=== PATIENT | male | born 1970 | race Caucasian/White ===

== ENCOUNTER 2018-08-30 18:01 | Outpatient (REF) | payer OTHER, SELFPAY ==
[2018-08-30 20:43] LABS: ALT 45 U/L (12-78); AST 25 U/L (15-37); Albumin 4.1 g/dL (3.4-5.0); Alkaline Phosphatase 90 U/L (46-116); Anion Gap 8.6 mmol/L (3-11); BUN 16 mg/dL (7-18); Bilirubin, Total 0.5 mg/dL (0.2-1.0); CO2 29.4 mmol/L (21.0-32.0); CREATININE 0.96 mg/dL (0.70-1.30); Calcium 9.2 mg/dL (8.5-10.1); Chloride 102 mmol/L (98-107); Creatine Kinase 119 U/L (39-308); Glucose 99 mg/dL (70-100); Potassium 5.2 mmol/L (3.5-5.1); Sodium 140 mmol/L (136-145)
== END 2018-08-30 18:21 ==
LOC: NCHCN 18:01
PROVIDERS: PCP Specialist/Technologist Athletic Trainer; Visit Provider Specialist/Technologist Athletic Trainer
DX: Z51.81 Encounter for therapeutic drug level monitoring (principal)
CPT/HCPCS: 80053; 82550

== ENCOUNTER 2019-05-24 16:05 | Outpatient (REF) | payer OTHER, SELFPAY ==
[2019-05-24 22:20] LABS: ALT 31 U/L (12-78); AST 28 U/L (15-37); Albumin 4.2 g/dL (3.4-5.0); Alkaline Phosphatase 93 U/L (46-116); Anion Gap 11.4 mmol/L (3-11); BUN 12 mg/dL (7-18); Bilirubin, Total 0.4 mg/dL (0.2-1.0); CO2 24.6 mmol/L (21.0-32.0); CREATININE 0.85 mg/dL (0.70-1.30); Calculated LDL 91 mg/dL; Chloride 104 mmol/L (98-107); Cholesterol 185 mg/dL (50-200); Glucose 81 mg/dL (70-100); HDL Cholesterol 43 mg/dL (40-60); Potassium 4.5 mmol/L (3.5-5.1); Sodium 140 mmol/L (136-145); Total Protein 8.2 g/dL (6.4-8.2); Triglyceride 257 mg/dL (30-150)
== END 2019-05-24 16:25 ==
LOC: NCHCN 16:05
PROVIDERS: PCP Specialist/Technologist Athletic Trainer; Visit Provider Specialist/Technologist Athletic Trainer
DX: Z00.00 Encounter for general adult medical examination without abnormal findings (principal); Z13.220 Encounter for screening for lipoid disorders; Z13.228 Encounter for screening for other metabolic disorders
CPT/HCPCS: 80053; 80061; 83721

== ENCOUNTER 2020-06-13 22:21 | Outpatient (REF) | payer OTHER, SELFPAY ==
[2020-06-13 22:52] LABS: ALT 28 U/L (16-63); AST 21 U/L (15-37); Albumin 4.3 g/dL (3.4-5.0); Alkaline Phosphatase 70 U/L (46-116); Anion Gap 11.7 mmol/L (3-11); BUN 23 mg/dL (7-18); Bilirubin, Total 0.5 mg/dL (0.2-1.0); CO2 23.3 mmol/L (21.0-32.0); CREATININE 0.95 mg/dL (0.70-1.30); Calcium 9.1 mg/dL (8.5-10.1); Calculated LDL 141 mg/dL (<100); Chloride 102 mmol/L (98-107); Cholesterol 211 mg/dL (<200); Glucose 96 mg/dL (74-106); HDL Cholesterol 48 mg/dL (40-60); Potassium 4.3 mmol/L (3.5-5.1); Sodium 137 mmol/L (136-145); Triglyceride 112 mg/dL (<150)
[2020-06-16 09:45] LABS: PSA, Screening 0.7 ng/mL (0.0-3.5)
== END 2020-06-13 22:41 ==
LOC: NCHCN 22:21
PROVIDERS: PCP Specialist/Technologist Athletic Trainer; Visit Provider Physician Assistant
DX: E78.5 Hyperlipidemia, unspecified (principal); Z00.00 Encounter for general adult medical examination without abnormal findings
CPT/HCPCS: 80053; 80061; 84153

== ENCOUNTER 2020-10-22 14:38 | Outpatient (REF) | payer OTHER, SELFPAY ==
[2020-10-26 07:30] LABS: Patient Race White; SARS-CoV-2 RNA Undetected (Undetected); SARS-CoV-2 Specimen Source Nasal
== END 2020-10-22 14:58 ==
LOC: NCHCN 14:38
PROVIDERS: PCP Specialist/Technologist Athletic Trainer; Visit Provider Physician Assistant
DX: Z11.59 Encounter for screening for other viral diseases (principal)
CPT/HCPCS: U0003

== ENCOUNTER 2021-06-08 13:09 | Outpatient (REF) | payer OTHER, SELFPAY ==
[2021-06-08 16:06] LABS: Cholesterol 292 mg/dL (<200); HDL Cholesterol 40 mg/dL (40-60); Triglyceride 603 mg/dL (<150)
[2021-06-08 16:29] LABS: LDL CHOLESTEROL 108 mg/dL (<100)
[2021-06-08 22:15] LABS: PSA, Screening 0.9 ng/mL (0.0-3.5)
== END 2021-06-08 13:10 | disposition home or self-care (01) ==
LOC: NCHCN 13:09
PROVIDERS: PCP Specialist/Technologist Athletic Trainer; Visit Provider Physician Assistant
DX: Z00.00 Encounter for general adult medical examination without abnormal findings (principal); E78.5 Hyperlipidemia, unspecified
CPT/HCPCS: 80061; 83721; 84153

== ENCOUNTER 2022-06-25 17:48 | Outpatient (REF) | payer OTHER, SELFPAY ==
--- NOTE | 2022-06-25 16:45 | SKI_PTH ---
PATIENT: Kranthi Palacios LOC: [facility] U#:[id number] AGE/SX: 51/M ROOM: RE06/25/[address]: Ketan Wolf : 1970 BED: DIS: 06/25/2022 SPEC #: [id number] RECD: 06/25/22 18:19 STATUS: ROSI REInna #: [id number] VASHTI: 06/25/22 16:[address]: Ketan Wolf DEPT: Surgical Specimen RECD BY: Rose Irvin Tissues: 1 - SKIN BIOPSY(SHAVE/PUNCH) Procedures: SKIN LEVEL 4 Comments: [id number]
== END 2022-06-25 17:49 | disposition home or self-care (01) ==
LOC: NCHCN 17:48
PROVIDERS: Visit Provider Physician Assistant
DX: D22.5 Melanocytic nevi of trunk (principal)
CPT/HCPCS: 88305

== ENCOUNTER 2022-09-16 11:17 | Outpatient (REF) | payer OTHER, SELFPAY ==
[2022-09-16 15:58] LABS: ALT 51 U/L (16-63); AST 30 U/L (15-37); Albumin 4.2 g/dL (3.4-5.0); Alkaline Phosphatase 104 U/L (46-116); Anion Gap 9.8 mmol/L (3-11); BUN 17 mg/dL (7-18); Bilirubin, Total 0.3 mg/dL (0.2-1.0); CO2 26.2 mmol/L (21.0-32.0); CREATININE 0.9 mg/dL (0.70-1.30); Calcium 9.6 mg/dL (8.5-10.1); Calculated LDL 134 mg/dL (<100); Chloride 103 mmol/L (98-107); Cholesterol 210 mg/dL (<200); Estimated GFR 102.12 (mL/min/1.73m2); Glucose 97 mg/dL (74-106); HDL Cholesterol 52 mg/dL (40-60); Potassium 4.9 mmol/L (3.5-5.1); Sodium 139 mmol/L (136-145); Total Protein 8.7 g/dL (6.4-8.2); Triglyceride 124 mg/dL (<150)
== END 2022-09-16 11:18 | disposition home or self-care (01) ==
LOC: NCHCN 11:17
PROVIDERS: Visit Provider Physician Assistant
DX: E78.5 Hyperlipidemia, unspecified (principal); Z12.5 Encounter for screening for malignant neoplasm of prostate
CPT/HCPCS: 80053; 80061; 84153

== ENCOUNTER 2023-08-26 10:30 | Outpatient (REF) | payer OTHER, SELFPAY ==
[2023-08-26 15:10] LABS: ALT 37 U/L (16-63); AST 23 U/L (15-37); Albumin 4.2 g/dL (3.4-5.0); Alkaline Phosphatase 90 U/L (46-116); Anion Gap 9.2 mmol/L (3-11); BUN 15 mg/dL (7-18); Bilirubin, Total 0.7 mg/dL (0.2-1.0); CO2 25.8 mmol/L (21.0-32.0); CREATININE 1.1 mg/dL (0.70-1.30); Calcium 9.2 mg/dL (8.5-10.1); Calculated LDL 101 mg/dL (<100); Chloride 102 mmol/L (98-107); Cholesterol 191 mg/dL (<200); Estimated GFR 80.27 (mL/min/1.73m2); Glucose 101 mg/dL (74-106); HDL Cholesterol 52 mg/dL (40-60); Potassium 4.3 mmol/L (3.5-5.1); Sodium 137 mmol/L (136-145); Total Protein 8.1 g/dL (6.4-8.2); Triglyceride 194 mg/dL (<150)
[2023-08-26 22:50] LABS: PSA, Screening 1.1 ng/mL (<=3.5)
== END 2023-08-26 10:31 | disposition home or self-care (01) ==
LOC: NCHCN 10:30
PROVIDERS: PCP Physician Assistant; Visit Provider Physician Assistant
DX: E78.5 Hyperlipidemia, unspecified (principal); Z12.5 Encounter for screening for malignant neoplasm of prostate
CPT/HCPCS: 80053; 80061; 84153

== ENCOUNTER 2024-07-02 18:41 | Outpatient (REF) | payer OTHER, SELFPAY ==
[2024-07-02 17:28] LABS: ALT 36 U/L (16-63); AST 23 U/L (15-37); Albumin 4.5 g/dL (3.4-5.0); Alkaline Phosphatase 90 U/L (46-116); Anion Gap 13.7 mmol/L (3-11); BUN 12 mg/dL (7-18); Bilirubin, Total 0.74 mg/dL (0.2-1.0); CO2 23.3 mmol/L (21.0-32.0); CREATININE 0.9 mg/dL (0.70-1.30); Calculated LDL 98 mg/dL (<100); Chloride 101 mmol/L (98-107); Cholesterol 192 mg/dL (<200); Estimated GFR 101.49 (mL/min/1.73m2); Glucose 100 mg/dL (74-106); HDL Cholesterol 52 mg/dL (40-60); Potassium 3.9 mmol/L (3.5-5.1); Sodium 138 mmol/L (136-145); Triglyceride 212 mg/dL (<150)
--- OUTSIDE RECORDS SUMMARY | 2024-07-02 18:43 | XMS_ITS | Encounter Summary ---
Author Organization [facility] Address [address] [place] [address] Care Team Providers Care Hide Dyer Name Role Phone Unknown, Provider Primary Care Provider [phone] Encounter Details Date Type Department Care Team (Late st Contact Info) Description 07/12/2014 Results Only [facility] [phone] Eder Fairchild, DO [address] [place] [address] Social History Tobacco Use Types Packs/Day Years Used Date Smoking Tobacco: Never Assessed Sex and Gender Information Value Date Recorded Sex Assigned at Not on file Gender Identity Not on file Sexual Orientation Not on file documented as of this encounter Plan of Treatment Not on file documented as of this encounter Procedures Procedure Name Priority Date/Time Associated Diagnosis Comments SURGICAL PATHOLOGY Routine 07/12/2014 19 :29 EDT documented in this encounter Results * SURGICAL PATHOLOGY (07/12/2014 19:29 EDT) Pathology Report: SURGICAL PATHOLOGY REPORT Reports generated via electronic interface contain original data; however they are lacking the format of the original report. Caution should be taken when reading/interpreti ng unformatted reports. Name: ? HILARIO RICHY ? Accession #: ? [id number] ? : ? 1970 (Age: 43) ??M ? Collect Date: ? 07/12/2014 ? Location: ? [facility] ? Receive Date: ? 07/12/2014 ? Provider: EDER FAIRCHILD DO Copy to: LINH SHANNON PAC ? Final Pathologic Diagnosis: A. COLON, HEPATIC FLEXURE, POLYP, BIOPSY: - ??Fragments of sessile serrated adenoma. B. COLON, SIGMOID, POLYP, BIOPSY: - ??Fragments of hyperplastic polyp. C. COLON, DISTAL SIGMOID, POLYP, BIOPSY: - ??Fragment of hyperplastic/infla mmatory polyp. Document reviewed and electronically signed by: GETACHEW DOE MD Report ??Date: 07/15/2014 20:21 By the signature above, the attending physician certifies that he/she has personally conducted a gross and/or microscopic examination of the described specimens and rendered or confirmed the above diagnosis. Specimen(s) Received: A. ??Colon polyp hepatic flexure (#1) B. ??Sigmoid polyp (#2) C. ??Distal sigmoid polyp (#3) Clinical History: Rectal bleeding, screening Gross Description: A. ?Received in formalin labelled with proper patient identification (initials B, B) and 1. colon polyp hepatic flexure are two pink-arechiga tissues (0.3 x 0.2 x 0.1 cm and 0.3 x 0.1 x 0.1 cm). Entirely submitted in A1. B. ?Received in formalin labelled with proper patient identification (initials B, B) and #2. sigmoid polyp is a single pink-arechiga tissue fragment (0.4 x 0.3 x 0.2 cm). Submitted intact in B1. C. ?Received in formalin labelled with proper patient identification (initials B, B) and #3. distal sigmoid polyp is a single pink-arechiga tissue fragment (0.1 x 0.1 x 0.1 cm). Submitted intact in C1. Dr. Moreno 07/13/2014 10:01 AM End of Report [facility] 07/12/2014 19:2 9 EDT 07/12/2014 19:29 EDT Eder Fairchild DO PATHOLOGY ORDERABLES Performing Organization Address City/State/[facility] Co de Phone Number [facility] [address] [place] [address] documented in this encounter Visit Diagnoses Not on filedocumented in this encounter Care Teams Hide Dyer Relationship Specialty Start Date End Date Unknown, Provider, PCP - General 07/12/14 05/25/15 documented as of this encounter
--- OUTSIDE RECORDS SUMMARY | 2024-07-02 18:43 | XMS_ITS | Referral Summary ---
Author Organization [facility] Address [address] [place] [address] Care Team Providers Care Data Lead Name Role Phone Jarrett Correia PA-C Primary Care Provider [phone] Encounters Date Type Department Care Team Description 07/02/2024 Lab Requisition [facility] Pathology & Laboratory Medicine - [facility] [address] [place] [address] Outr Resulting Lab, Provider from Last 3 Months Social History Tobacco Use Types Packs/Day Years Used Date Smoking Tobacco: Never Assessed Sex and Gender Information Value Date Recorded Sex Assigned at Not on file Gender Identity Not on file Sexual Orientation Not on file Plan of Treatment Not on file Care Teams Data Lead Relationship Specialty Start Date End Date Jarrett Correia PA-C PCP - General 05/26/15
--- OUTSIDE RECORDS SUMMARY | 2024-07-02 18:43 | XMS_ITS | Encounter Summary ---
Author Organization [facility] Address [address] [place] [address] Care Team Providers Care Marketing Strategy Lead Name Role Phone Unknown, Provider Primary Care Provider [phone] Encounter Details Date Type Department Care Team (Late st Contact Info) Description 05/21/2015 Results Only [facility] [phone] Linh Shannon PA-C [address] [place] [address] Social History Tobacco Use Types Packs/Day Years Used Date Smoking Tobacco: Never Assessed Sex and Gender Information Value Date Recorded Sex Assigned at Not on file Gender Identity Not on file Sexual Orientation Not on file documented as of this encounter Plan of Treatment Not on file documented as of this encounter Procedures Procedure Name Priority Date/Time Associated Diagnosis Comments SURGICAL PATHOLOGY Routine 05/21/2015 20 :53 EDT documented in this encounter Results * SURGICAL PATHOLOGY (05/21/2015 20:53 EDT) Pathology Report: SURGICAL PATHOLOGY REPORT Reports generated via electronic interface contain original data; however they are lacking the format of the original report. Caution should be taken when reading/interpret ing unformatted reports. Name: ? BONYKEIRY RICHY ? Accession #: ? [id number] ? : ? 1970 (Age: 44) ??M ? Collect Date: ? 05/21/2015 ? Location: ? [facility] ? Receive Date: ? 05/22/2015 ? Provider: LINH SHANNON PAC Copy to: ? Final Pathologic Diagnosis: A. ? SKIN OF BACK, RIGHT UPPER PROXIMAL, ELLIPTICAL EXCISION: ? - Melanocytic nevus, combined type (intradermal and blue). - Lesion extends to peripheral edges of biopsy specimen. - Lesion measures approximately 4.0 mm to the biopsy base. B. ? SKIN OF BACK, RIGHT UPPER DISTAL, ELLIPTICAL EXCISION: ? - Melanocytic nevus, intradermal type. - Lesion extends to peripheral edges of biopsy specimen. - Lesion measures approximately 2.0 mm to the biopsy base. Microscopic Description: (A) ??Within the dermis are two populations of melanocytes. More superficially, there are nests, cords, and strands that diminish in size with descent into the dermis. ??The melanocytes are slightly enlarged but generally have round-oval nuclei and a moderate amount of cytoplasm. ??The melanocytes show etiology teacher maturation. ??The melanocytes show an irregular distribution of melanin pigment. Also present is a second population of more heavily pigmented dendritic melanocytes. ??The proliferation is overall symmetric and somewhat wedge shaped. There is no overt atypia. ? (B) ??Sections are of a papule with mild epidermal hyperplasia and hyperkeratosis. ??There is a proliferation of melanocytes within the dermis. ??The proliferation consists of nests, cords, and strands that diminish in size with descent into the dermis. ??The melanocytes are slightly enlarged but generally have round-oval nuclei and a moderate amount of cytoplasm. ??The melanocytes show etiology teacher maturation. ??(Dr. Tam)/[place] Document reviewed and electronically signed by: SHANNAN TAM MD Report ??Date: 05/26/2015 13:21 By the signature above, the attending physician certifies that he/she has personally conducted a gross and/or microscopic examination of the described specimens and rendered or confirmed the above diagnosis. Specimen(s) Received: A. ?Excision (elliptical) R upper back proximal (#1) B. ? Excision (elliptical) R upper back distal (#2) Clinical History: A. ?Multi-colored nevus w/irregular borders; B. Multi-colored nevus with raised irregular borders Gross Description: A. ?Received in formalin labelled with proper patient identification (initials B, B) and mole proximal right upper back is an unoriented elliptical excision of pink-arechiga hairbearing skin (0.9 x 0.4 cm and is excised to a depth of 0.4 cm). There is a central arechiga-brown well-demarcated macule that measures 0.5 x 0.3 cm. The margins are inked blue. The specimen is serially sectioned and entirely submitted as A1 central sections and A2 tips, reverse en face. B. ?Received in formalin labelled with proper patient identification (initials B, B) and right upper back distal mole is an unoriented elliptical excision of pink-arechiga hairbearing skin (0.9 x 0.4 cm and is excised to a depth of 0.5 cm). There is an eccentric zambrano-brown roughened lesion that measures 0.3 x 0.3 x 0.1 cm. The margins are inked blue. The specimen is serially sectioned and entirely submitted as B1 central sections and B2 tips, reverse en face. Samm Kulkarni 05/23/2015 12:[address] [facility] 05/21/2015 20:5 3 EDT 05/22/2015 20:53 EDT Linh Shannon PA-C PATHOLOGY ORDERAB LES [facility] [address] [place] [address] documented in this encounter Visit Diagnoses Not on filedocumented in this encounter Care Teams Marketing Strategy Lead Relationship Specialty Start Date End Date Unknown, Provider, PCP - General 07/12/14 05/25/15 documented as of this encounter
--- OUTSIDE RECORDS SUMMARY | 2024-07-02 18:43 | XMS_ITS | Encounter Summary ---
Author Organization [facility] Address [address] [place] [address] Care Team Providers Care Plastic Products Sales Representative Name Role Phone Jarrett Correia PA-C Primary Care Provider [phone] Encounter Details Date Type Department Care Team (Late st Contact Info) Description 06/14/2020 Lab Requisition [facility] Pathology & Laboratory Medicine - [facility] [address] [place], [place] [id number] Outr Resulting Lab, Provider Social History Tobacco Use Types Packs/Day Years Used Date Smoking Tobacco: Never Assessed Sex and Gender Information Value Date Recorded Sex Assigned at Not on file Gender Identity Not on file Sexual Orientation Not on file documented as of this encounter Plan of Treatment Not on file documented as of this encounter Procedures Procedure Name Priority Date/Time Associated Diagnosis Comments PSA TOTAL, DIAGNOSTIC Routine 06/13/2020 7:38 EDT documented in this encounter Results * PSA TOTAL, DIAGNOSTIC (06/13/2020 7:38 EDT) PSA 0.7 0.0 - 3.5 ng/mL 06/16/2020 9:41 EDT [facility] Blood VENOUS BLOOD / Unknown 06/13/2020 7:38 EDT 06/15/2020 19:39 EDT Narrative [facility] - 06/16/2020 9:41 EDT NOTE: Serum PSA concentration should not be interpreted as absolute evidence for the presence or absence of malignant disease. Assayed on Siemens ADVIA Centaur XPT using chemiluminescent technology.??Values obtained by using different assay methods cannot be used interchangeably. Provider Outr Resulting Lab CHEMISTRY & BLOOD GAS ORDERABLES [facility] [address] [place] [address] documented in this encounter Visit Diagnoses Not on filedocumented in this encounter Care Teams Plastic Products Sales Representative Relationship Specialty Start Date End Date Jarrett Correia PA-C PCP - General 05/26/15 documented as of this encounter
--- OUTSIDE RECORDS SUMMARY | 2024-07-02 18:43 | XMS_ITS | Encounter Summary ---
Author [facility] [place] [address] Care Team Providers Care Scalp Treatment Operator Name Role Phone Jarrett Correia Primary Care Provider [phone] Reason for Visit * Reason Comments Skin Check Encounter Details Date Type Department Care Team (Late st Contact Info) Description 08/29/2014 9:45 AM EDT Office Visit Dermatology at [address] [address] Pedrito Martinez MD [address] [facility] [place] [address] Allergic contact dermatitis (Primary Dx) Discharge Disposition: Home Social History Tobacco Use Types Packs/Day Years Used Date Smoking Tobacco: Never Sex and Gender Information Value Date Recorded Sex Assigned at Not on file Gender Identity Not on file Sexual Orientation Not on file documented as of this encounter Progress Notes * Pedrito Martinez MD - 08/29/2014 10:08 AM EDT Problem: Foot dermatitis. Violet is a 43-year-old gentleman who for at least six years has had problems with foot dermatitis. It seems to be worse in the summer months and improves in the winter months. It is quite itchy and develops on the lateral aspects of his feet and dorsal toes, not in the toe web spaces, and often there are microvesicles and some serous oozing associated with this. He has a history of childhood eczema but has had no issues with that in the antecubital fossae for many years. 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 He uses the betamethasone valerate 0.05% ointment b.i.d. p.r.n. His only other medication is Zyrtec 10 mg once daily. He does wear leather boots with Kevlar toes at work and has always worn different varieties of these ankle-high boots. The rash never goes above his ankle. He has worn Krebs, Macdoel, and various different manufacturers over the last six years and has had problems with most of them. Physical examination reveals a pleasant 43-year-old gentleman who has patchy dermatitis over the bony prominences on the left lateral foot, also along the lower side of the left foot to distribute over the dorsal toes. It does not extend down into the toe web spaces or onto the sole of the foot. He has some patchy lichenification over the dorsal right toe. Assessment and Plan: Spongiotic dermatitis with intermittent flaring, suspect allergic contact dermatitis to his shoes. a. Recommend that the patient be seen for patch testing by [place]. [place] [facility] Discussed my suspected diagnosis, and the patient understands the rationale for patch testing and the need for three visits. b. May continue for now betamethasone valerate ointment, applying q.day b.i.d. as needed for itching. Currently his dermatitis is actually looking very good he states. c. Discussed how the potential allergen may be shared between different brands of shoes and so he should not buy a new pair to replace them and expect resolution. d. Further explained that his current work position at [employer] is not the likely source of his dermatitis and I do not think anything in his work as an dredge boat engineer there is specifically triggering his dermatitis. We will refer to Dr. Friend to rule out allergic contact shoe dermatitis. COPY: Jarrett Correia P.A.-C. documented in this encounter Plan of Treatment Not on file documented as of this encounter Visit Diagnoses Diagnosis Allergic contact dermatitis- Primary Contact dermatitis and other eczema, due to unspecified cause documented in this encounter Care Teams Scalp Treatment Operator Relationship Specialty Start Date End Date Jarrett Correia PA [address] [place] [address] PCP - General 05/03/14 06/01/21 documented as of this encounter
--- OUTSIDE RECORDS SUMMARY | 2024-07-02 18:43 | XMS_ITS | Encounter Summary ---
Author Organization [facility] Address [address] [place] [address] Care Team Providers Care Director Decision Support Name Role Phone Jarrett Correia PA-C Primary Care Provider [phone] Encounter Details Date Type Department Care Team (Late st Contact Info) Description 06/26/2022 Lab Requisition [facility] Pathology & Laboratory Medicine - [facility] [address] [place] [address] Ketan Wolf, [facility] [address] [place] [address] [place] [address] Encounter for other general examination Social History Tobacco Use Types Packs/Day Years Used Date Smoking Tobacco: Never Assessed Sex and Gender Information Value Date Recorded Sex Assigned at Not on file Gender Identity Not on file Sexual Orientation Not on file documented as of this encounter Plan of Treatment Not on file documented as of this encounter Procedures Procedure Name Priority Date/Time Associated Diagnosis Comments SURGICAL PATHOLOGY Today 06/25/2022 16 :45 EDT Encounter for other general examination documented in this encounter Results * SURGICAL PATHOLOGY (06/25/2022 16:45 EDT) Note to Patient The following pathology results have been interpreted by your pathologist and may be available to you before your health provider has had the opportunity to review them. Please allow time for your provider to receive these results and explore management options, if applicable. 06/28/2022 14:02 EDT [facility] Final Diagnosis A. SKIN OF ABDOMEN, RIGHT LOWER, SHAVE BIOPSY: - Melanocytic nevus, compound type, with unusual architectural features and mild cytologic atypia. - Nevus present at peripheral and deep tissue edges. 06/28/2022 14:02 [facility] Attestation By the signature below, the attending physician certifies that they have 1) personally conducted a gross and/or microscopic examination of the described specimen(s), and/or personally interpreted the results of laboratory testing of the described specimen(s), and 2) personally rendered or confirmed the above diagnosis. 06/28/2022 14:02 [facility] at 1402 Microscopic Description Sections consist of a fragmented portion of skin to the superficial reticular dermis. There is an ill-defined melanocytic proliferation. The junctional component consists of nests that vary and size and spacing. Individual melanocytes are minimally increased in density and show no tendency toward confluence. The melanocytes are slightly enlarged. There is a patchy dermal component consisting of nests of similar melanocytes. 06/28/2022 14:02 [facility] Clinical History 5 mm flat nevus on right lower abdomen with irregular borders and color variation 06/28/2022 14:02 [facility] Gross Description A. Received in formalin labelled with proper patient identification (initials B, B) and nevus on right lower abdomen is a shave biopsy of white skin (0.4 x 0.4 x 0.1 cm) with an eccentric, irregular brown macule (0.4 x 0.3 x 0.1 cm). The specimen is inked, bisected, and submitted in A1. MACRY QUIÑONES(ASCP) 06/28/2022 6:13 06/28/2022 14:02 T [facility] Performing Lab [facility] 06/28/2022 14:02 [facility] Scanned Images 06/28/2022 14:02 [facility] Tissue TISSUE SPECIMEN FROM SKIN / Unknown 06/25/2022 16:45 EDT 06/26/2022 9:56 EDT Ketan Wolf [facility] PATHOLOGY ORDERAB LES [facility] [address] [place] [address] documented in this encounter Visit Diagnoses Diagnosis Encounter for other general examination documented in this encounter Care Teams Director Decision Support Relationship Specialty Start Date End Date Jarrett Correia PA-C PCP - General 05/26/15 documented as of this encounter
--- OUTSIDE RECORDS SUMMARY | 2024-07-02 18:43 | XMS_ITS | Encounter Summary ---
Author Organization [facility] Address [address] [place] [address] Care Team Providers Care Food And Beverage Assistant Name Role Phone Jarrett Correia PA-C Primary Care Provider [phone] Encounter Details Date Type Department Care Team (Late st Contact Info) Description 08/26/2023 Lab Requisition [facility] Pathology & Laboratory Medicine - [facility] [address] [place], [place] [id number] Outr Resulting Lab, Provider Social History Tobacco [...] Associated Diagnosis Comments PSA TOTAL, DIAGNOSTIC Routine 08/26/2023 7:35 EDT documented in this encounter Results * PSA TOTAL, DIAGNOSTIC (08/26/2023 7:35 EDT) PSA 1.1 <=3.5 ng/mL 08/26/2023 22:45 EDT [facility] Blood VENOUS BLOOD / Unknown 08/26/2023 7:35 EDT 08/26/2023 21:24 EDT Narrative [facility] - 08/26/2023 22:45 EDT NOTE: Serum PSA concentration should not be interpreted as absolute evidence for the presence or absence of malignant disease. Assayed on Siemens ADVIA Platedaur XPT using chemiluminescent technology.??Values obtained by using different assay methods cannot be used interchangeably. Provider Outr Resulting Lab CHEMISTRY & BLOOD GAS ORDERABLES [facility] [address] [place] [address] documented in this encounter Visit Diagnoses Not on filedocumented in this encounter Care Teams Food And Beverage Assistant Relationship Specialty Start Date End Date Jarrett Correia PA-C PCP - General 05/26/15 documented as of this encounter
--- OUTSIDE RECORDS SUMMARY | 2024-07-02 18:43 | XMS_ITS | Encounter Summary ---
Author Organization [facility] Address [address] [place] [address] Care Team Providers Care Tipple Operator Name Role Phone Jarrett Correia PA-C Primary Care Provider [phone] Encounter Details Date Type Department Care Team (Late st Contact Info) Description 09/16/2022 Lab Requisition [facility] Pathology & Laboratory Medicine - [facility] [address] [place], [place] [id number] Outr Resulting Lab, Provider Social History Tobacco [...] Associated Diagnosis Comments PSA TOTAL, DIAGNOSTIC Routine 09/16/2022 8:40 EDT documented in this encounter Results * PSA TOTAL, DIAGNOSTIC (09/16/2022 8:40 EDT) PSA 3.0 <=3.5 ng/mL 09/17/2022 13:45 EDT [facility] Blood VENOUS BLOOD / Unknown 09/16/2022 8:40 EDT 09/16/2022 21:34 EDT Narrative [facility] - 09/17/2022 13:45 EDT NOTE: Serum PSA concentration should not be interpreted as absolute evidence for the presence or absence of malignant disease. Assayed on Siemens ADVIA Centaur XPT using chemiluminescent technology.??Values obtained by using different assay methods cannot be used interchangeably. Provider Outr Resulting Lab CHEMISTRY & BLOOD GAS ORDERABLES [facility] [address] [place] [address] documented in this encounter Visit Diagnoses Not on filedocumented in this encounter Care Teams Tipple Operator Relationship Specialty Start Date End Date Jarrett Correia PA-C PCP - General 05/26/15 documented as of this encounter
--- OUTSIDE RECORDS SUMMARY | 2024-07-02 18:43 | XMS_ITS | Encounter Summary ---
Author Organization [facility] Address [address] [place] [address] Care Team Providers Care Flipping Machine Operator Name Role Phone Unknown, Provider Primary Care Provider Encounter Details Date Type Department Care Team (Latest Contact Info) Description 05/21/2015 15:14 EDT - 05/21/2015 23:59 EDT Hospital Encounter [address] [id number] Unknown, Provider, Discharge Disposition: Home or Self Care Social History Tobacco Use Types Packs/Day Years Used Date Smoking Tobacco: Never Assessed Sex and Gender Information Value Date Recorded Sex Assigned at Not on file Gender Identity Not on file Sexual Orientation Not on file documented as of this encounter Discharge Disposition Disposition Code Departure Means Destination Home or Self Custodial documented in this encounter Plan of Treatment Not on file documented as of this encounter Visit Diagnoses Not on filedocumented in this encounter Care Teams Flipping Machine Operator Relationship Specialty Start Date End Date Unknown, Provider, PCP - General 07/12/14 05/25/15 documented as of this encounter
--- OUTSIDE RECORDS SUMMARY | 2024-07-02 18:43 | XMS_ITS | Encounter Summary ---
Author Organization [facility] Address [address] [place] [address] Care Team Providers Care Railroad Police Officer Name Role Phone Jarrett Correia PA-C Primary Care Provider [phone] Encounter Details Date Type Department Care Team (Late st Contact Info) Description 06/08/2021 Lab Requisition [facility] Pathology & Laboratory Medicine - [facility] [address], [place] [id number] Outr Resulting Lab, Provider Social History Tobacco [...] Associated Diagnosis Comments PSA TOTAL, DIAGNOSTIC Routine 06/08/2021 10:05 EDT documented in this encounter Results * PSA TOTAL, DIAGNOSTIC (06/08/2021 10:05 EDT) PSA 0.9 0.0 - 3.5 ng/mL 06/08/2021 22:10 EDT [facility] Blood VENOUS BLOOD / Unknown 06/08/2021 10:05 EDT 06/08/2021 20:51 EDT Narrative [facility] - 06/08/2021 22:10 EDT NOTE: Serum PSA concentration should not be interpreted as absolute evidence for the presence or absence of malignant disease. Assayed on Siemens [employer] XPT using chemiluminescent technology.??Values obtained by using different assay methods cannot be used interchangeably. Provider Outr Resulting Lab CHEMISTRY & BLOOD GAS ORDERABLES [facility] [address] [place] [address] documented in this encounter Visit Diagnoses Not on filedocumented in this encounter Care Teams [employer] Police Officer Relationship Specialty Start Date End Date Jarrett Correia PA-C PCP - General 05/26/15 documented as of this encounter
--- OUTSIDE RECORDS SUMMARY | 2024-07-02 18:43 | XMS_ITS | Clinical Summary ---
[place] [address] Care Team Providers Care Patient Services Clerk Name Role Phone Unknown Primary Care Provider Unavailabl e Allergies No known active allergies Medications Medication Sig Dispensed Refills Start Date End Date Status betamethasone dipropionate (DIPROLENE) 0.05 % Cream Apply topically 2 times daily. Active Active Problems Problem Noted Date Diagnosed Date Allergic contact dermatitis 08/29/2014 Social History Tobacco Use Types Packs/Day Years Used Date Smoking Tobacco: Never Sex and Gender Information Value Date Recorded Sex Assigned at Not on file Gender Identity Not on file Sexual Orientation Not on file Plan of Treatment Health Maintenance Due Date Last Done Comments CT Colonography 1969 Colonoscopy 1969 Colorectal Cancer Screening 1969 FIT DNA 1969 FIT 1969 Sigmoidoscopy (10 year) with FIT yearly 1969 Sigmoidoscopy 1969 HIV screen 1987 Hepatitis C Screening 1987 Lipid Screening 1987 Hepatitis B vaccine (0-59 yrs) (1) 1988 Tdap adult 1988 Tetanus vaccine 1988 Zoster vaccine (1 of 2) 2019 Covid-19 Vaccine (1 - 2022-24 season) 2023 Influenza (Flu) vaccine (1 o f 1 - Influenza standard series) 07/29/2024 Care Teams Patient Services Clerk Relationship Specialty Start Date End Date Unknown None PCP - General 06/02/21
--- OUTSIDE RECORDS SUMMARY | 2024-07-02 18:43 | XMS_ITS | Encounter Summary ---
Author Organization [facility] Address [address] [place] [address] Care Team Providers Care Sales Superintendent Name Role Phone Unknown, Provider Primary Care Provider [phone] Encounter Details Date Type Department Care Team (Latest Contact Info) Description 07/12/2014 6:36 EDT - 07/12/2014 23:59 EDT Hospital Encounter [address] [address] Unknown, Provider, Discharge Disposition: Home or Self Care Social History Tobacco Use Types Packs/Day Years Used Date Smoking Tobacco: Never Assessed Sex and Gender Information Value Date Recorded Sex Assigned at Not on file Gender Identity Not on file Sexual Orientation Not on file documented as of this encounter Discharge Disposition Disposition Code Departure Means Destination Home or Self Half-Way documented in this encounter Plan of Treatment Not on file documented as of this encounter Visit Diagnoses Not on filedocumented in this encounter Care Teams Sales Superintendent Relationship Specialty Start Date End Date Unknown, Provider, PCP - General 07/12/14 05/25/15 documented as of this encounter
--- OUTSIDE RECORDS SUMMARY | 2024-07-02 18:43 | XMS_ITS | Encounter Summary ---
Author Organization [facility] Address [address] [place] [address] Care Team Providers Care Paper Pattern Folder Name Role Phone Jarrett Correia PA-C Primary Care Provider [phone] Encounter Details Date Type Department Care Team (Late st Contact Info) Description 07/02/2024 Lab Requisition [facility] Pathology & Laboratory Medicine - [facility] [address] [place], [place] [id number] Outr Resulting Lab, Provider Social History Tobacco Use Types Packs/Day Years Used Date Smoking Tobacco: Never Assessed Sex and Gender Information Value Date Recorded Sex Assigned at Not on file Gender Identity Not on file Sexual Orientation Not on file documented as of this encounter Plan of Treatment Scheduled Orders Name Type Priority Associated Diagnoses Orde r Schedule PSA TOTAL, DIAGNOSTIC Lab Routine Ord ered: 07/02/2024 documented as of this encounter Visit Diagnoses Not on filedocumented in this encounter Care Teams Paper Pattern Folder Relationship Specialty Start Date End Date Jarrett Correia PA-C PCP - General 05/26/15 documented as of this encounter
--- OUTSIDE RECORDS SUMMARY | 2024-07-02 18:43 | XMS_ITS | Clinical Summary ---
Author Organization [facility] Address [address] [place] [address] Care Team Providers Care Renal Dialysis Rn Name Role Phone Jarrett Correia PA-C Primary Care Provider [phone] Encounters Date Type Department Care Team Description 07/02/2024 Lab Requisition [facility] Pathology & Laboratory Medicine - [facility] [address] [place] [address] Outr Resulting Lab, Provider from Last 3 Months Social History Tobacco Use Types Packs/Day Years Used Date Smoking Tobacco: Never Assessed Sex and Gender Information Value Date Recorded Sex Assigned at Not on file Gender Identity Not on file Sexual Orientation Not on file Plan of Treatment Health Maintenance Due Date Last Done Comments Hepatitis C Screen 1969 Hepatitis B Vaccine (1 of 3 - 19+ 3-dose series) 09/09 COVID-19 Vaccine (2022- season) 2023 Care Teams Renal Dialysis Rn Relationship Specialty Start Date End Date Jarrett Correia PA-C PCP - General 05/26/15
[2024-07-02 18:51] LABS: Calcium 9.4 mg/dL (8.5-10.1)
[2024-07-02 22:29] LABS: PSA, Screening 1.5 ng/mL (<=3.5)
== END 2024-07-02 18:42 | disposition home or self-care (01) ==
LOC: NCHCN 18:41
PROVIDERS: PCP Physician Assistant; Visit Provider Physician Assistant
DX: E78.5 Hyperlipidemia, unspecified (principal); Z12.5 Encounter for screening for malignant neoplasm of prostate
CPT/HCPCS: 80053; 80061; 84153

== ENCOUNTER 2025-07-10 14:37 | Outpatient (REF) | payer OTHER, SELFPAY ==
[2025-07-10 17:17] LABS: ALT 31 U/L (16-63); AST 20 U/L (15-37); Albumin 4.4 g/dL (3.4-5.0); Alkaline Phosphatase 81 U/L (46-116); Anion Gap 8.9 mmol/L (3-11); BUN 18 mg/dL (7-18); Bilirubin, Total 0.6 mg/dL (0.2-1.0); CO2 26.1 mmol/L (21.0-32.0); Calcium 9.2 mg/dL (8.5-10.1); Calculated LDL 106 mg/dL (<100); Chloride 103 mmol/L (98-107); Cholesterol 201 mg/dL (<200); Estimated GFR 104.51 (mL/min/1.73m2); Glucose 102 mg/dL (74-106); HDL Cholesterol 45 mg/dL (>or=40); Potassium 4.3 mmol/L (3.5-5.1); Sodium 138 mmol/L (136-145); Total Protein 7.9 g/dL (6.4-8.2); Triglyceride 253 mg/dL (<150)
[2025-07-11 09:27] LABS: PSA, Screening 1.5 ng/mL (<=3.5)
== END 2025-07-10 14:38 | disposition home or self-care (01) ==
LOC: NCHCN 14:37
PROVIDERS: PCP Physician Assistant; Visit Provider Physician Assistant
DX: E78.5 Hyperlipidemia, unspecified (principal); Z12.5 Encounter for screening for malignant neoplasm of prostate
CPT/HCPCS: 80053; 80061; 84153